=== PATIENT | male | born 2000 ===

== ENCOUNTER 2025-02-19 01:32 | Emergency (ER) | payer OTHER ==
[~2025-02-19] VITALS: Ht 177.8 cm; Wt 72.0 kg
[2025-02-19 01:32] VITALS: BP 138/92; PULSE 77; RESP 17; TEMP 98.1; O2SAT 100
[2025-02-19] MEDS ORDERED: HYDROcodone-ACET 5/325MG TAB PO ONE (02:00)
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
== END 2025-02-19 05:14 | disposition home or self-care (01) ==
LOC: ER 01:32 → EDBD 01:32 → ER 05:14
DX: S33.5XXA Sprain of ligaments of lumbar spine, initial encounter (principal); S13.4XXA Sprain of ligaments of cervical spine, initial encounter; S66.911A Strain of unspecified muscle, fascia and tendon at wrist and hand level, right hand, initial encounter; S60.511A Abrasion of right hand, initial encounter; V89.2XXA Person injured in unspecified motor-vehicle accident, traffic, initial encounter; Y93.89 Activity, other specified; Y92.488 Other paved roadways as the place of occurrence of the external cause; Y99.8 Other external cause status
CPT/HCPCS: 72040; 72100; 73030; 73110